=== PATIENT | male | born 1950 | race Caucasian/White ===

== ENCOUNTER → 2016-05-09 | Outpatient (CLI) | payer OTHER, MEDICAID ==
--- NOTE | 2016-05-09 17:56 | MR ---
MRI of the Left Knee Clinical Indications: Evaluate for meniscal tear. Knee pain. Technique: Fat-suppressed, fast T2-weighted images were acquired axially, sagittally, and coronally. T1-weighted sagittal images were obtained. Findings Medial compartment: Horizontal longitudinal full-thickness tear involves the body and posterior horn of the medial meniscus, full-thickness in severity, with extension to the periphery throughout the p osterior horn, associated with multiple small parameniscal cysts, especially at the posteromedial cor ner. Degenerative maceration and fraying of the anterior horn, without tear. Articular cartilage of the medial compartment is intact. Lateral compartment: Meniscus and articular cartilage appear intact. Patellofemoral compartment: Mild to moderate grade 1 and grade 2 chondral thinning, medial patellar facet, without focal defect. Anterior and posterior cruciate ligaments are intact. Medial and lateral collateral ligaments are in tact. Distal quadriceps and patellar tendons are intact Small knee joint effusion, with small Patel's cyst. IMPRESSIONS 1. Horizontal longitudinal full-thickness tear, midbody and posterior horn, medial meniscus, with pa rameniscal cysts. 2. 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 3. Small knee joint effusion, with Patel's cyst.
== END ==
LOC: FIMAGING 16:08
PROVIDERS: ATTEND Orthopaedic Surgery
DX: S83.242A Other tear of medial meniscus, current injury, left knee, initial encounter (principal); M22.42 Chondromalacia patellae, left knee; M71.22 Synovial cyst of popliteal space [Baker], left knee

== ENCOUNTER 2016-06-12 05:31 | Inpatient (IN) | payer MEDICAID, OTHER ==
[2016-06-12] MEDS ORDERED: LIDOCAINE 1% 5 ML SDV ID PRN (06:26)
[2016-06-12] MEDS ORDERED: LR 1,000 ML IV ONE (06:26)
[2016-06-12] MEDS ORDERED: LIDOCAINE 1% 5 ML SDV ONE (06:30)
[2016-06-12] MEDS ORDERED: SUGAMMADEX SODIUM 200 MG/2 ML VIAL IVP ONE (07:12)
[2016-06-12] MEDS ORDERED: ROCURONIUM 50 MG/5 ML VIAL ONE ×2 (07:12→10:29)
[2016-06-12] MEDS ORDERED: DEXAMETHASONE 4 MG/ML VIAL ONE (07:12)
[2016-06-12] MEDS ORDERED: fentaNYL 100 MCG/2 ML INJ ONE ×2 (07:12→12:12)
[2016-06-12] MEDS ORDERED: PROPOFOL 200 MG/20 ML VIAL ONE ×2 (07:12→11:40)
[2016-06-12] MEDS ORDERED: ONDANSETRON 4 MG/2 ML VIAL ONE (07:12)
[2016-06-12] MEDS ORDERED: HYDROmorphONE/DILAUDID 2 MG/ML INJ ONE (07:12)
[2016-06-12] MEDS ORDERED: LIDOCAINE 2% 100 MG/5 ML SYR IVP ONE (07:12)
[2016-06-12] MEDS ORDERED: MIDAZOLAM 2 MG/2 ML VIAL ONE (07:14)
[2016-06-12] MEDS ORDERED: BUPIVACAINE/EPI 0.5% 30 ML SDV ONE (07:31)
[2016-06-12] MEDS ORDERED: SKIN ADHESIVE (DERMABOND) 1 EACH TP ONE (07:31)
[2016-06-12] MEDS ORDERED: cefOXitin SODIUM 2 GM in D5W 100 ML IV ONE (08:00)
--- NOTE | 2016-06-12 08:28 | POSTOPPROG ---
Post Op Note Date of Operation: 06/12/16 Surgeon: Ilan Robbins Anesthesia: GET(General Endotracheal) Pre-op Diagnosis: Prostate CA Post-op Diagnosis: Prostate CA Procedure: Robotic radical prostatectomy Findings: See op note Inf/Abcess present in the surg proc area at time of surgery?: No EBL: 50-100 (100 cc) Complications: None Drains: Jeronimo Grullon (10 Flat) Specimen(s): Prostate + SV's
[2016-06-12] MEDS ORDERED: ROCURONIUM 100 MG/10 ML VIAL ONE (08:46)
[2016-06-12] MEDS ORDERED: LABETALOL HCL 5 MG/ML 20 ML MDV ONE (09:27)
[2016-06-12] MEDS ORDERED: LIDOCAINE 2% JELLY 5 ML TUBE TP PRN (11:50)
[2016-06-12] MEDS ORDERED: ONDANSETRON 4 MG/2 ML VIAL IVP PRN (11:50)
[2016-06-12] MEDS ORDERED: PROMETHAZINE HCL 25 MG/ML INJ IVP PRN (11:50)
[2016-06-12] MEDS ORDERED: NALOXONE HCL 0.4 MG/ML INJ IVP PRN (11:51)
[2016-06-12] MEDS ORDERED: HYDROmorphONE/DILAUDID 6 MG/30 ML PCA IV PRN (11:51)
[2016-06-12] MEDS ORDERED: KETOROLAC 30 MG/1 ML SDV ONE (12:03)
[2016-06-12] MEDS ORDERED: KETOROLAC 30 MG/1 ML SDV IVP ONE (13:30)
[2016-06-12] MEDS: D5W 1/2 NS 1,000 ML IV SCH ×2 (14:00→21:51)
[2016-06-12] MEDS: cefOXitin SODIUM 2 GM in D5W 100 ML IV SCH (16:42)
[2016-06-12] MEDS ORDERED: LORazepam 0.5 MG TAB PO PRN (17:31)
[2016-06-12] MEDS: GABAPENTIN 300 MG CAP PO SCH ×2 (17:48→21:24)
[2016-06-12] MEDS: VENLAFAXINE HCL 75 MG TAB PO SCH (18:00)
[2016-06-12] MEDS: KETOROLAC 15 MG/1 ML SDV IVP SCH (19:40)
[2016-06-13] MEDS: cefOXitin SODIUM 2 GM in D5W 100 ML IV SCH ×3 (00:09→15:39)
[2016-06-13] MEDS: KETOROLAC 15 MG/1 ML SDV IVP SCH ×4 (00:09→19:49)
[2016-06-13 06:05] LABS: HEMATOCRIT 38.2 % (40.0-51.0); HEMOGLOBIN 13.1 g/dL (13.7-17.5); MEAN CELL HEMOGLOBIN 35.6 pg (27.9-34.1); MEAN CELL HEMOGLOBIN CONCENTR. 34.3 g/dL (32.4-36.7); MEAN CELL VOLUME 103.8 fL (81.5-99.8); RED BLOOD CELL COUNT 3.68 10^6/uL (4.40-6.38); RED CELL DISTRIBUTION WIDTH 12.1 % (11.5-15.2)
[2016-06-13 06:20] LABS: ANION GAP 4 mEq/L (8-16); CALCIUM 8.5 mg/dL (8.5-10.4); CARBON DIOXIDE 28 mEq/l (22-31); CHLORIDE 106 mEq/L (97-110); CREATININE 0.8 mg/dL (0.7-1.3); GLOMERULAR FILTRATION RATE > 60; GLUCOSE 137 mg/dL (70-100); POTASSIUM 4.1 mEq/L (3.5-5.2); SODIUM 138 mEq/L (134-144)
[2016-06-13] MEDS: buPROPion XL 150 MG TAB PO SCH ×2 (08:19→10:47)
[2016-06-13] MEDS: VENLAFAXINE HCL 75 MG TAB PO SCH (08:20)
[2016-06-13] MEDS: GABAPENTIN 300 MG CAP PO SCH ×3 (08:20→19:58)
[2016-06-13] MEDS ORDERED: GABAPENTIN 300 MG CAP PO SCH (09:00)
--- NOTE | 2016-06-13 14:19 | SOAPPROG ---
<MontezAnuja - Last Filed: 06/13/16 14:17> SOAP Progress Note Assessment/Plan: Assessment/Plan Post prostatectomy--Patient is being taken off bed rest to allow for ambulation with nurse and OT eval. Once OT evaluates patient, will determine if patient can go home or to rehab for recovery. 06/13/16 14:17 Subjective: Some pain with twisting. No gas. No ambulation. Objective: Vital Signs Temp Pulse Resp BP Pulse Ox 36.6 C 80 16 97/67 L 97 06/13/16 12:00 06/13/16 14:00 06/13/16 14:00 06/13/16 14:00 06/13/16 14:00 Laboratory Results 06/13/16 05:49 06/13/16 05:49 06/12/16 06/13/16 06/14/16 05:59 05:59 05:59 Intake Total 4918.6 100 Output Total 875 Balance 4043.6 100 Physical Exam - Physical Exam General Appearance: alert, no apparent distress Respiratory: normal breath sounds Abdomen: distended (GURJIT draining 10ml bloody fluid) Male Genitalia: other (catheter draining mildly bloody urine into bag) ICD10 Worksheet Patient Problems: Problems Problem Status Onset Prostate cancer Acute - ICD10 Problem Qualifiers (1) Prostate cancer <Ilan Robbins - Last Filed: 06/13/16 19:10> SOAP Progress Note Assessment/Plan: Assessment: Agree w/ KO. Doing well overall, but not ready for discharge. Plan: 1. Advance diet. 2. Continue to work on ambulation. 3. Switch to oral narcotics. 4. Determine home disposition tomorrow. Objective: Vital Signs Temp Pulse Resp BP Pulse Ox 36.9 C 77 14 108/66 96 06/13/16 17:35 06/13/16 17:35 06/13/16 17:35 06/13/16 17:35 06/13/16 17:35 Laboratory Results 06/13/16 05:49 06/13/16 05:49 06/12/16 06/13/16 06/14/16 05:59 05:59 05:59 Intake Total 4918.6 2252 Output Total 875 635 Balance 4043.6 1617
[2016-06-13] MEDS: D5W 1/2 NS 1,000 ML IV SCH (15:40)
[2016-06-13] MEDS: HYDROCODONE/APAP 10/325 TAB PO PRN (19:57)
[2016-06-14] MEDS: D5W 1/2 NS 1,000 ML IV SCH (00:21)
[2016-06-14] MEDS: KETOROLAC 15 MG/1 ML SDV IVP SCH (00:22)
[2016-06-14] MEDS: cefOXitin SODIUM 2 GM in D5W 100 ML IV SCH ×2 (00:22→08:26)
[2016-06-14] MEDS: HYDROCODONE/APAP 10/325 TAB PO PRN ×2 (08:25→12:42)
[2016-06-14] MEDS: VENLAFAXINE HCL 75 MG TAB PO SCH (08:25)
[2016-06-14] MEDS: GABAPENTIN 300 MG CAP PO SCH (08:26)
[2016-06-14] MEDS: buPROPion XL 150 MG TAB PO SCH (08:27)
--- NOTE | 2016-06-14 12:35 | SOAPPROG ---
SOAP Progress Note Assessment/Plan: Assessment: POD 2 s/p RALP. Doing well. Plan: 1. Discharge w/ [facility] & HC. 2. FU week from Thursday for [facility] removal. Subjective: No complaints. Objective: Vital Signs Temp Pulse Resp BP Pulse Ox 36.6 C 94 18 133/70 H 91 L 06/14/16 09:20 06/14/16 09:20 06/14/16 09:20 06/14/16 09:20 06/14/16 09:20 Laboratory Results 06/13/16 05:49 06/13/16 05:49 06/13/16 06/14/16 06/15/16 05:59 05:59 05:59 Intake Total 4918.6 3721 Output Total 875 1435 Balance 4043.6 2286 Physical Exam - Physical Exam General Appearance: WD/WN, alert, no apparent distress Abdomen: soft, distended, other (incisions c/d/i) Male Genitalia: other (urine clear via [facility]) Back: Normal inspection Skin: normal color, warm/dry Extremities: non-tender, normal inspection Neuro/Psych: alert, normal mood/affect, oriented x 3 ICD10 Worksheet Patient Problems: Problems Problem Status Onset Prostate cancer Acute
--- NOTE | 2016-06-14 12:40 | PDIAF ---
- Diagnosis Diagnosis: Prostate Cancer Code Status: Full Code - Medication Management Discharge Medications: Medications to Continue on Transfer Gabapentin [Neurontin 300 MG (*)] 300 mg PO TID 05/20/16 [Last Taken 06/12/16 04 :30] LORazepam [Ativan (*)] 0.5 mg PO DAILY PRN 05/20/16 [Last Taken Unknown] Venlafaxine HCl [Venlafaxine HCl ER] 225 mg PO DAILY 05/20/16 [Last Taken 04:30] buPROPion XL [Wellbutrin 150mg XL] 150 mg PO DAILY 05/20/16 [Last Taken 04:30] buPROPion XL [Wellbutrin 150mg XL] 300 mg PO DAILY 05/20/16 [Last Taken 04:30] traZODone [traZODone 150MG (*)] 150 mg PO HS 05/20/16 [Last Taken 06/11/16 21:00 ] Ciprofloxacin [Cipro] 500 mg PO BID #12 tab 06/14/16 [Last Taken Unknown] Gabapentin [Neurontin 300 MG (*)] 300 mg PO TID #0 cap 06/14/16 [Last Taken Unknown] HYDROcodone/APAP 10/325 [[place] 10/325 (*)] 1 - 2 tab PO Q6 PRN #20 tab 06/14/16 [Last Taken Unknown] Venlafaxine HCl [Venlafaxine 75MG (*)] 225 mg PO DAILY #0 tab 06/14/16 [Last Taken Unknown] buPROPion XL [Wellbutrin 150mg XL] 150 mg PO DAILY #0 tab 06/14/16 [Last Taken Unknown] buPROPion XL [Wellbutrin 150mg XL] 300 mg PO DAILY #0 tab 06/14/16 [Last Taken Unknown] traZODone [traZODone 150MG (*)] 150 mg PO HS #0 tab 06/14/16 [Last Taken Unknown ] Discharge Medications: Refer to the Discharge Home Medication list for PRN reason. PICC Care - Routine: N/A - Orders Services needed: Home [facility] Care Face to Face: I certify that this patient was under my care and that I had the required [id number] encounter meeting the encounter requirements on the discharge day. My findings support the fact that the patient is homebound as defined in CMS Chapter 7 Medicare Benefits Manual 30.1.1, The condition of the patient is such that there exists a normal inability to leave home and consequently, leaving home would require a considerable and taxing effort. Diet Recommendation: no restrictions on diet - Follow Up Care Current Providers and Referrals: Yesi Jacobsen PA [Primary Care Provider] -
[2016-06-14 14:26] VITALS: BP 125/69; PULSE 88; RESP 16; TEMP 98.1; O2SAT 90
== END 2016-06-14 14:50 | disposition home or self-care (01) | DRG 708 ==
LOC: F1N 05:31
PROVIDERS: ADMIT Specialist; ATTEND Specialist
PROC: 0VT04ZZ Resection of Prostate, Percutaneous Endoscopic Approach (ICD-10-PCS; principal; 2016-06-12 08:14)
PROC: 8E0WXCZ Robotic Assisted Procedure of Trunk Region (ICD-10-PCS; principal; 2016-06-12 08:14)
DX: C61 Malignant neoplasm of prostate (principal); Z80.42 Family history of malignant neoplasm of prostate; N40.1 Benign prostatic hyperplasia with lower urinary tract symptoms; R33.9 Retention of urine, unspecified; N52.9 Male erectile dysfunction, unspecified; N43.40 Spermatocele of epididymis, unspecified; R35.1 Nocturia
CPT/HCPCS: 97116-GP; 97161-GP; 97165-GO; 97530-GP; G8978-GP-CJ; G8979-GP-CI; G8987-GO-CJ; G8988-GO-CI; J0694; J1100; J1170; J1885; J2001; J2250; J2405; J2704; J3010; J3490